=== PATIENT | female | born 1980 | race Caucasian/White ===

== ENCOUNTER → 2017-01-22 19:37 | Outpatient (CLI) | payer MEDICAID ==
[2015-04-21 11:38] VITALS: BMI 43.0
[~2017-01-22 19:37] MED LIST: CLARITIN 10 MG10 MG PO; CYMBALTA30 MG PO; DEXILANT60 MG PO; GLUCOPHAGE500 MG PO; PROZAC10 MG PO; ZYRTEC10 MG PO
== END | disposition home or self-care (01) ==
LOC: D.SLEEP 19:37
DX: G47.33 Obstructive sleep apnea (adult) (pediatric) (principal)

== ENCOUNTER → 2017-03-14 19:48 | Outpatient (CLI) | payer MEDICAID ==
[2015-04-21 11:38] VITALS: BMI 43.0
== END | disposition home or self-care (01) ==
LOC: D.SLEEP 02-13 20:00
DX: G47.33 Obstructive sleep apnea (adult) (pediatric) (principal)

== ENCOUNTER 2017-03-24 11:24 | Emergency (ER) | payer MEDICAID ==
[2015-04-21 11:38] VITALS: BMI 43.0
[2017-03-24 12:39] LABS: APPEARANCE CLEAR (CLEAR); BILIRUBIN NEGATIVE (NEGATIVE); COLOR YELLOW (YELLOW); GLUCOSE NEGATIVE (NEGATIVE); KETONE NEGATIVE (NEGATIVE); LEUKOCYTE ESTERASE 1+ (NEGATIVE); NITRITE NEGATIVE (NEGATIVE); PROTEIN NEGATIVE (NEGATIVE); UROBILINOGEN NORMAL (NORMAL)
[2017-03-24 12:40] LABS: BACTERIA MODERATE /hpf (NONE SEEN); RED CELLS - URINE 0-5 /hpf (0-5)
== END 2017-03-24 14:05 | disposition home or self-care (01) ==
LOC: D.ER 11:24
PROVIDERS: Nurse Practitioner Family
DX: M54.2 Cervicalgia (principal); S39.012A Strain of muscle, fascia and tendon of lower back, initial encounter; X58.XXXA Exposure to other specified factors, initial encounter

== ENCOUNTER 2017-05-10 22:59 | Emergency (ER) | payer MEDICAID ==
[2015-04-21 11:38] VITALS: BMI 43.0
== END 2017-05-11 00:50 | disposition home or self-care (01) ==
LOC: D.ER 22:59
DX: M25.562 Pain in left knee (principal); S89.92XA Unspecified injury of left lower leg, initial encounter; X58.XXXA Exposure to other specified factors, initial encounter; Y93.89 Activity, other specified; Y92.89 Other specified places as the place of occurrence of the external cause

== ENCOUNTER → 2017-05-17 15:27 | Outpatient (CLI) | payer MEDICAID ==
[2015-04-21 11:38] VITALS: BMI 43.0
== END | disposition home or self-care (01) ==
LOC: D.MRI 15:27
DX: M25.562 Pain in left knee (principal)

== ENCOUNTER 2017-05-25 06:35 | Day surgery (SDC) | payer MEDICAID ==
[~2017-05-25] VITALS: Ht 162.6 cm; Wt 99.8 kg
--- NOTE | ~2017-05-25 | OP ---
PATIENT NAME: RANDY VINES MEDICAL RECORD: [id number] :76 LOCATION:[facility] ADMISSION DATE: SURGEON: USAMA MCGREGOR DO DATE OF OPERATION: 05/25/2017 PROCEDURE PERFORMED: A left knee arthroscopy with partial synovectomy, partial lateral meniscectomy and a medial femoral condyle chondroplasty. PREOPERATIVE DIAGNOSES: Left knee pain with left lateral meniscal tear. 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 INDICATIONS: Ms. Vines is a 36-year-old female, who presented to the office with extreme lateral-sided knee pain of the left knee. She was examined and offered injection, which she did not want to do, she wanted to get to the root of the problem, so an MRI was ordered. MRI demonstrated a possible cyst in the lateral meniscus indicating occult meniscal tear. This was done and the patient was put on the schedule for today. The procedure risks and benefits were explained to the patient and she consented to the procedure. SURGEON: Usama Mcgregor DO. COMMUNICATIONS SCIENTIST: Mirna Gottlieb, advanced nurse practitioner. DESCRIPTION OF PROCEDURE: The patient was taken to the operative suite and placed in supine position and given general anesthetic. She was given vancomycin and started to get somewhat of a rash. The vancomycin was stopped and given clindamycin. At that point, a timeout was performed. Everyone is in agreement with the correct site, side and the patient and the left leg was prepped and draped in sterile fashion. The procedure then began. The portal sites were injected with 0.5% Marcaine with 1% epinephrine, approximately 4 mL in each medial and lateral portal site. The lateral portal was then established using 11-blade scalpel and the trocar was placed into the notch and up into the suprapatellar pouch. The camera was then introduced into the knee and drawn back. Diagnostic arthroscopy was done at that time, seen some synovitis over the medial side of the knee. The patellas appeared to be intact with no chondromalacia. The lateral gutter was inspected first and no foreign bodies or loose bodies were seen in the lateral gutter. The camera was then swung over to the medial gutter and again no foreign bodies were seen. The knee was then flexed and the medial joint, medial compartment was viewed and the medial portal was established and under direct visualization with an 18-gauge spinal needle, an 11-blade was used to establish a portal at that time. A probe was then used to probe the meniscus on the medial side and seemed to be very stable, no tears were noted; however, the knee was flexed down noted to see a small chondral lesion in the medial femoral condyle at approximately 70 degrees of flexion about 3-mm and and seem to have some loose cartilage on the sides. I did not probe to bone; however, did flake a little bit and a shaver was introduced and the cartilage was shaved back to stable position, but there were no loose spots. The arthroscopy was then continued, shaver was taken out, a probe was introduced from the medial portal and the ACL was viewed. There was some synovitis was noted and some of the fat pad was chewed out at that time to improve the viewing. The ACL was probed and seem to be very stable. The probe was docked into the back of the knee just medial to the lateral femoral condyle and the knee was placed in the [id number] position and the lateral meniscus OPERATIVE REPORT [id number] RANDY VINES was viewed at that time and probed, seem to be somewhat stable; however, in the mid substance of the shape of the meniscus, appeared to be somewhat of a frail meniscus. This was probed and seemed to have a horizontal intrasubstance tear in the meniscus. A biter was then placed into the medial portal and some of the meniscus was chewed back to stable position and again some synovitis was noted on the lateral side just above the meniscus and the shaver was introduced and that was resected under direct visualization. The camera portal was switched to the medial side, inframedial lateral side and the tear was viewed, seemed to have a small tear that remained in the horizontal intrasubstance tear right in the middle of the meniscus on the lateral side. A side biter and straight biter could not be reached well and the camera was switched back to the lateral portal and a tear was viewed and the straight biter was introduced from the lateral medial portal and into the side and the tear was chewed back to stable position. The shaver was then introduced and all the loose debris was sucked up and cleared out with a shaver. The camera was then placed into the suprapatellar pouch again and some synovitis that was there on the medial side of the patella was resected with a shaver as well. The camera was then withdrawn and all the excess fluid was drained out of the knee. Everything was withdrawn. The portal sites were closed using 3-0 Monocryl in inverted interrupted fashion and Steri-Strips were placed over the site. Adaptic, 4 x 4s, ABD, Yg wrap was then placed on the patient's knee and she had a compression stocking placed up to the knee. She is awake and in stable condition and taken to recovery. ESTIMATED BLOOD LOSS: Minimal. TRANSINT:[id number] Voice Confirmation ID: [id number] DOCUMENT ID: [id number] USAMA MCGREGOR DO CC: [id number] DICTATION DATE: 05/25/17 1013 BASK[facility] TURNER: 05/25/17 1440 [facility] 05/25/17 [id number] [place] [address]
[2017-05-25 07:19] LABS: HEMATOCRIT 40.4 % (36.0-48.0); HEMOGLOBIN 13.8 g/dL (12-16); MCH 29.7 pg (26.0-34.0); MCHC 34.2 g/dL (31.0-37.0); MCV 86.9 fL (80.0-100.0); MEAN PLATELET VOLUME 10.3 fL (7.4-10.4); RBC 4.65 10x6/uL (4.00-5.40); WBC 9.8 10x3/uL (4.8-10.8)
[2017-05-25 07:49] VITALS: BP 117/79; Ht 162.6 cm; Wt 99.8 kg
[2017-05-25] MEDS ORDERED: PERCOCET 10/3251 TA1 PO (10:06)
[2017-05-25] MEDS ORDERED: TORADOL10 MG PO (10:07)
--- NOTE | 2017-05-25 10:36 | NUR ---
RECEIVED PT FROM OR WITH JAY WRAP TO LEFT KNEE AND RAFAEL ESPARZA.
== END 2017-05-25 12:03 | disposition home or self-care (01) ==
LOC: D.OPS 06:35 → D.PAN 12:45 → D.OPS 12:45
PROVIDERS: Anesthesiology
DX: S83.282A Other tear of lateral meniscus, current injury, left knee, initial encounter (principal); M65.862 Other synovitis and tenosynovitis, left lower leg; M94.262 Chondromalacia, left knee; Z01.812 Encounter for preprocedural laboratory examination

== ENCOUNTER → 2018-07-31 16:56 | Outpatient (CLI) | payer MEDICAID ==
[2017-05-25 07:49] VITALS: BMI 37.8
[~2018-07-31 16:56] MED LIST changes: +PERCOCET 10/3251 TA1 PO; +TORADOL10 MG PO
== END | disposition home or self-care (01) ==
LOC: D.MAMMO 13:30
DX: N63.12 Unspecified lump in the right breast, upper inner quadrant (principal)

== ENCOUNTER 2019-04-30 10:00 | Outpatient (CLI) | payer MEDICAID ==
[2017-05-25 07:49] VITALS: BMI 37.8
== END 2019-04-30 12:00 | disposition home or self-care (01) ==
LOC: D.MAMMO 10:00
PROVIDERS: ATTEND Family Medicine
DX: R92.8 Other abnormal and inconclusive findings on diagnostic imaging of breast (principal)

== ENCOUNTER → 2019-07-21 12:44 | Outpatient (CLI) | payer MEDICAID ==
[2017-05-25 07:49] VITALS: BMI 37.8
== END | disposition home or self-care (01) ==
LOC: D.MRI 12:44
PROVIDERS: ATTEND Orthopaedic Surgery
DX: M25.532 Pain in left wrist (principal)

== ENCOUNTER 2020-04-15 13:57 | Emergency (ER) | payer MEDICAID ==
[~2020-04-15] VITALS: Ht 162.6 cm; Wt 104.5 kg
[2020-04-15 14:06] VITALS: Ht 162.6 cm; Wt 104.5 kg
[2020-04-15] MEDS ORDERED: OMEPRAZOLE40 MG PO (14:08)
[2020-04-15] MEDS ORDERED: AMBIEN10 MG PO (14:08)
[2020-04-15 14:50] LABS: BASOPHILS 0.3 % (0-2); HEMATOCRIT 42.8 % (36.0-48.0); HEMOGLOBIN 14.4 g/dL (12-16); IMMATURE GRANULOCYTES 0.3 % (0-5); LYMPHOCYTES 31.1 % (15-50); MCH 28.4 pg (26.0-34.0); MCHC 33.6 g/dL (31.0-37.0); MCV 84.4 fL (80.0-100.0); MEAN PLATELET VOLUME 10.2 fL (7.4-10.4); MONOCYTES 8.3 % (2-11); RBC 5.07 10x6/uL (4.00-5.40); WBC 9.4 10x3/uL (4.8-10.8)
[2020-04-15 14:52] LABS: PLATELET COUNT 329 10x3/uL (130-400)
[2020-04-15 15:16] LABS: ALBUMIN 3.7 g/dL (3.4-5.0); ALKALINE PHOSPHATASE 75 U/L (30-120); ALT (SGPT) 28 U/L (10-68); APTT 31.4 SECONDS (22.8-39.4); BILIRUBIN - TOTAL 0.81 mg/dL (0.2-1.3); CALC OSMOLALITY 272 mosm/kg (275-300); CALCIUM 9.2 mg/dL (8.5-10.1); CARBON DIOXIDE 24.8 mmol/L (21.0-32.0); CHLORIDE - SERUM 103 mmol/L (98-107); CKMB 1.1 U/L (0.0-3.6); CREATINE KINASE 85 UL (21-215); CREATININE - SERUM 1.1 mg/dL (0.6-1.3); GLUCOSE 101 mg/dL (74-106); INR 0.94 (0.85-1.17); MAGNESIUM - SERUM 1.9 mg/dL (1.8-2.4); PROTEIN - SERUM 7.2 g/dL (6.4-8.2); PROTIME 12.6 SECONDS (11.6-15.0); SODIUM 137 mmol/L (136-145); UREA NITROGEN 9 mg/dL (7-18); eGFR NON AFRICAN AMERICAN 58 mL/min (90-120)
[2020-04-15 15:17] LABS: D-DIMER-QUANTITATIVE < 0.27 ug/mLFEU (0.20-0.54)
[2020-04-15 15:21] LABS: TROPONIN-I < 0.017 ng/mL (0.000-0.060)
[2020-04-15 15:28] LABS: POTASSIUM - SERUM 2.9 mmol/L (3.5-5.1)
[2020-04-15] MEDS ORDERED: ACETAMINOPHEN500 M1 PO (16:58)
[2020-04-15] MEDS ORDERED: IBUPROFEN800 MG PO (16:58)
[2020-04-15] MEDS ORDERED: CYCLOBENZAPRINE10 MG PO (16:58)
[2020-04-15 18:22] VITALS: BP 104/68
== END 2020-04-15 18:22 | disposition home or self-care (01) ==
LOC: D.ER 13:57
PROVIDERS: Family Medicine
DX: M54.6 Pain in thoracic spine (principal); M79.18 Myalgia, other site; K21.9 Gastro-esophageal reflux disease without esophagitis

== ENCOUNTER → 2020-07-16 09:34 | Outpatient (CLI) | payer MEDICAID ==
[2020-04-15 14:06] VITALS: BMI 39.5
[~2020-07-16 09:34] MED LIST changes: +ACETAMINOPHEN500 M1 PO; +AMBIEN10 MG PO; +CYCLOBENZAPRINE10 MG PO; +IBUPROFEN800 MG PO; +OMEPRAZOLE40 MG PO
== END | disposition home or self-care (01) ==
LOC: D.NM 09:30
PROVIDERS: ATTEND Internal Medicine Gastroenterology
DX: R93.3 Abnormal findings on diagnostic imaging of other parts of digestive tract (principal)

== ENCOUNTER 2021-04-11 15:30 | Outpatient (CLI) | payer BC ==
[2020-04-15 14:06] VITALS: BMI 39.5
== END 2021-04-11 23:59 | disposition home or self-care (01) ==
LOC: D.MAMMO 15:30
PROVIDERS: ATTEND Family Medicine
DX: R92.2 Inconclusive mammogram (principal)